=== PATIENT | male | born 1955 | race Native Hawaiian/Other Pacific Islander ===

== ENCOUNTER 2016-12-05 08:13 | Outpatient (CLI) | payer OTHER | END 2016-12-05 09:13 | disposition home or self-care (01) | LOC: MRI 08:13 | DX: M54.5 Low back pain (principal); M54.16 Radiculopathy, lumbar region ==

== ENCOUNTER 2018-11-21 10:58 | Day surgery (SDC) | payer OTHER | END 2018-11-21 15:07 | disposition home or self-care (01) | LOC: OR 10:58 | PROC: 0DJD8ZZ Inspection of Lower Intestinal Tract, Via Natural or Artificial Opening Endoscopic (ICD-10-PCS; principal; 2018-11-21) | DX: K57.30 Diverticulosis of large intestine without perforation or abscess without bleeding (principal); K64.8 Other hemorrhoids; Z12.11 Encounter for screening for malignant neoplasm of colon | CPT/HCPCS: J2704 ==

== ENCOUNTER 2019-03-29 07:58 | Outpatient (CLI) | payer OTHER | END 2019-03-29 19:06 | disposition home or self-care (01) | LOC: CT 07:58 | DX: Z12.2 Encounter for screening for malignant neoplasm of respiratory organs (principal); Z87.891 Personal history of nicotine dependence ==